=== PATIENT | female | born 1960 | race Caucasian/White ===

== ENCOUNTER 2019-07-12 11:42 | Emergency (ER) | payer OTHER, SELFPAY ==
[2019-07-12 11:52] VITALS: BP 138/74; PULSE 60; RESP 18; TEMP 36.3; O2SAT 96; BMI 26.5
--- NOTE | 2019-07-12 11:55 | ED.PEDHENT ---
HPI - Pediatric HENT <DELMY Napoles - Last Filed: 07/12/19 13:07> General Chief complaint: Ear Stated complaint: EAR INFECTION LT Time Seen by Provider: 07/12/19 11:48 Source: patient Mode of arrival: Ambulatory Limitations: no limitations History of Present Illness HPI Narrative: The patient is a 59-year-old female nonsmoker who denies pertinent medical history presents with a chief complaint of left ear pain and itching. She states that she knows it is full of wax and she has been sticking Q-tips into it to try to get her wax out. Subsequently she complains of pain and itching in her left canal. She denies any fevers nausea vomiting or diarrhea. She tried debrox drops at home. She has not taken anything else for pain. Related Data Previous Rx's Medication Instructions Recorded ofloxacin 10 drop EAR-LEFT DAILY 7 Days #10 07/12/19 ml Allergies Allergy/AdvReac Type Severity Reaction Status Date / Time heroin Allergy Uncoded 07/12/19 11:56 Pediatric Review of Systems <DELMY Napoles - Last Filed: 07/12/19 13:07> Review of Systems: GENERAL: Denies chills, fatigue, malaise, fever, sweats. HEENT: See HPI RESPIRATORY: Denies dyspnea, cough, wheezing, hemoptysis, sputum. CARDIOVASCULAR: Denies chest pain, palpitations, orthopnea, edema, GASTROINTESTINAL: Denies nausea, vomiting, abdominal pain, diarrhea, constipation, melena. : Denies dysuria, frequency, incontinence, hematuria, urinary retention. MUSCULOSKELETAL: denies weakness, joint pain, or bony pain SKIN: Denies rash, skin lesions, or other NEUROLOGIC: Denies weakness, headache, numbness, change in speech, confusion, seizures, incoordination. PSYCHIATRIC: No concerning psychosocial issues. 12 point review of systems is negative except for those stated above Patient History <DELMY Napoles - Last Filed: 07/12/19 13:07> Social History Smoking Status: Never smoker Pediatric Exam <DELMY Napoles - Last Filed: 07/12/19 13:07> Narrative Physical exam: GENERAL: This is a well-nourished, well-developed patient, in no acute distress HEAD: Atraumatic. Normocephalic. No temporal or scalp tenderness. EYES: Pupils equal round and reactive. Extraocular motions intact. No scleral icterus. No injection or drainage. ENT: Nose without bleeding, purulent drainage or septal hematoma. Airway patent. Bilateral ear canal cerumen obstruction. Pain to left pinna. No pain left mastoid palpation. Left ear canal erythematous NECK: Trachea midline. No JVD or lymphadenopathy. Supple, nontender, no meningeal signs. CARDIOVASCULAR: Regular rate and rhythm without murmurs, gallops, or rubs. RESPIRATORY: Clear to auscultation. Breath sounds equal bilaterally. No wheezes, rales, or rhonchi. EXTREMITIES: No clubbing, cyanosis, or edema. No joint tenderness, effusion, or edema noted. BACK: Nontender without deformity or crepitance. No flank tenderness. NEURO: AOx3. SKIN: No rash or erythema visible skin Initial Vital Signs Initial Vital Signs: Vital Signs Temperature 97.3 F L 07/12/19 11:52 Pulse Rate 60 07/12/19 11:52 Respiratory Rate 18 07/12/19 11:52 Blood Pressure 138/74 07/12/19 11:52 Pulse Oximetry 96 07/12/19 11:52 General Limitations: no limitations <Wally iLnk DO - Last Filed: 07/13/19 07:06> Initial Vital Signs Initial Vital Signs: Vital Signs Temperature 97.3 F L 07/12/19 11:52 Pulse Rate 60 07/12/19 11:52 Respiratory Rate 18 07/12/19 11:52 Blood Pressure 138/74 07/12/19 11:52 Pulse Oximetry 96 07/12/19 11:52 Course <MICHELLE Napoles-CLAY - Last Filed: 07/12/19 13:07> Course Course Narrative: Re-evaluation after nursing flushed left ear shows that left TM is pearly crane. Improved cerumen impaction. Vital Signs Vital signs: Vital Signs - 8 hr 07/12/19 11:52 Temperature 97.3 F L Pulse Rate 60 Respiratory Rate 18 Blood Pressure 138/74 Pulse Oximetry 96 <Wally Link DO - Last Filed: 07/13/19 07:06> Vital Signs Vital signs: Vital Signs - 8 hr 07/12/19 11:52 Temperature 97.3 F L Pulse Rate 60 Respiratory Rate 18 Blood Pressure 138/74 Pulse Oximetry 96 Medical Decision Making <Tatiana Hernandes, WR[employer]PER AND PRESERVER-BC - Last Filed: 07/12/19 13:07> [facility] Narrative Medical decision making narrative: The patient is a 59-year-old female who presents with a chief complaint of left ear irritation. Exam reveals bilateral cerumen impaction. After clearing left canal, exam indicates otitis externa. Will treat with ofloxacin drops. Discussed at length following up with primary care provider, coming back to the emergency department for any acute concerns. Patient has no pain to palpation of left mastoid, afebrile etcetera. No questions or concerns upon discharge states understanding return precautions as well as follow-up care Discharge Plan Departure Patient Disposition: Home Clinical Impression: Otitis externa Qualifiers: Otitis externa type: unspecified type Chronicity: acute Laterality: left Qualified Code(s): H60.502 - Unspecified acute noninfective otitis externa, left ear Impacted cerumen Qualifiers: Laterality: bilateral Qualified Code(s): H61.23 - Impacted cerumen, bilateral Discharge Date/Time: 07/12/19 12:49 Instructions: How to Instill Ear Drops, Cerumen Impaction, DI for Otitis Externa Activity Restrictions/Additional Instructions: Thank you for trusting us with your care today I sent a prescription of antibiotic ear drops to [facility] in [place] Please follow-up with primary care provider in the next few days Please come back to the emergency department for any acute concerns such as inability keep down fluids etcetera Prescriptions: New ofloxacin 0.3 % drops 10 drop EAR-LEFT DAILY 7 Days Qty: 10 RF: 0 Referrals: Nacho Bach DO [Primary Care Provider] -
--- NOTE | 2019-07-12 12:22 | PC.NURSE ---
pt ears have narrow canals, she states that is normal for her.
--- NOTE | 2019-07-12 12:37 | PC.NURSE ---
irrigated left ear with sterile water, little return, used curett to left ear with yellow wax noted.
== END 2019-07-12 12:49 | disposition home or self-care (01) ==
PROVIDERS: Emergency Provider Nurse Practitioner Family; PCP Family Medicine
DX: H60.502 Unspecified acute noninfective otitis externa, left ear (principal); H61.23 Impacted cerumen, bilateral
CPT/HCPCS: 99281